=== PATIENT | male | born 1950 | race Two or more races ===

== ENCOUNTER 2023-08-13 15:34 | Inpatient (IN) | payer OTHER ==
[~2023-08-13] VITALS: Ht 188 cm; Wt 63.0 kg
--- NOTE | 2023-08-13 15:51 | NUR ---
PTE ALERTA Y ORIENTADO X3 REIFERE QUE EL ENERO LE REALIZARON COLONOSCOPIA EN CONSOLIDATED MALL EN CAGUAS. PTE REFIERE TENER DOLOR EN CUADRANTE INFERIOR DERECHO DESDE ENTONCES MISMO REFIERE TENER REFERIDO MEDICO POR MD MELINDA ALMENDAREZ.
[2023-08-13] MEDS ORDERED: XARELTO10 MG PO (15:55)
[2023-08-13] MEDS ORDERED: FAMOTIDINE/PF 20 MG in 0.9 % SODIUM CHLORIDE 8 ML IV PUSH STA (16:31)
[2023-08-13] MEDS ORDERED: ONDANSETRON HCL 2 MG/ML VIAL IV ONE (16:45)
[2023-08-13] MEDS ORDERED: 0.9 % SODIUM CHLORIDE 1,000 ML IV SCH ×2 (16:45→23:00)
[2023-08-13] MEDS ORDERED: MEPERIDINE HCL/PF 25 MG/ML VIAL IM ONE (16:45)
--- NOTE | 2023-08-13 17:49 | NUR ---
PTE EVALUADO POR DR LEON. SE EDUCA A PTE SOBRE [place] MEDICO Y REFIERE ENTENDER. SE COLECTAN MUESTRAS DE LABORATORIO BAJO MEDIDAS ASEPTICAS. SE ENTREGA ENVASE PARA U/A. SE CANALIZA A PTE Y SE ADMINISTRAN MEDICAMENTOS CLAY ORDEN MEDICA. SE NOTIFICA CT/PO. SE ENTREGA A PTE CONTRASTES Y SE EDUCA AL MISMO.
[2023-08-13 18:03] LABS: HEMATOCRIT 42.3 % (39.0-48.0); HEMOGLOBIN 14.1 g/dL (13-16.00); MEAN CELL VOLUME 98.2 fL (80.0-100.00); MEAN CORPUSCULAR HEMOGLOBIN 32.8 pg (27.00-32.0); MEAN CORPUSCULAR HGB CONC 33.4 g/dl (32.0-36.0); PLATELET COUNT 148 K/uL (150-450); RED BLOOD COUNT 4.31 M/uL (4.00-6.00); RED CELL DISTRIBUTION WIDTH 13.8 % (11.5-14.5)
[2023-08-13 18:21] LABS: ALBUMIN 3.3 gm/dL (3.4-5.0); BILIRUBIN TOTAL 1.75 mg/dL (0.3-1.2); CALCIUM 9.2 mg/dL (8.5-10.1); CREATININE SERUM 1.25 mg/dL (0.70-1.30); GFR 56.62; GLOBULINA 4.8 G/DL (2.4-3.5); POTASSIUM 4.34 mEq/L (3.5-5.1); TOTAL PROTEIN 8.1 gm/dL (6.4-8.2)
[2023-08-13 18:41] LABS: INR 1.47; PARTIAL THROMBOPLASTIN TIME 32.7 SECONDS (22.0-34.0)
[2023-08-13] MEDS ORDERED: PIPERACILLIN/TAZOBACTAM SODIUM 3.375 GM in 0.9 % SODIUM CHLORIDE 100 ML IV SCH (19:34)
[2023-08-13] MEDS ORDERED: ONDANSETRON HCL 4 MG in 0.9 % SODIUM CHLORIDE 50 ML IV PRN (23:15)
[2023-08-13] MEDS ORDERED: ENALAPRILAT DIHYDRATE 1.25 MG/ML VIAL IV PRN (23:15)
[2023-08-13] MEDS ORDERED: MEPERIDINE HCL/PF 25 MG/ML VIAL IM PRN (23:15)
[2023-08-14 00:29] LABS: PH,URINE 5.5 (5.0-8.0); URINE APPEARANCE Clear; URINE BILIRRUBIN Negative (NEGATIVE); URINE BLOOD Large; URINE COLOR Yellow; URINE GLUCOSE Negative (NEGATIVE); URINE LEUKOCYTE Negative; URINE NITRATE Negative; URINE PROTEIN 30 (NEGATIVE)
[2023-08-14 00:33] LABS: URINE BACTERIA 25.1 uL (0.0-1933); URINE EPITHELIAL CELLS 12.5 uL (0.0-38.8); URINE RBC 102.1 uL (0.0-20.8); URINE WBC 8.3 uL (0.0-23.2)
[2023-08-14] MEDS ORDERED: FAMOTIDINE/PF 20 MG in 0.9 % SODIUM CHLORIDE 8 ML IV PUSH SCH (09:00)
[2023-08-14] MEDS ORDERED: fentaNYL CITRATE 50 MCG/ML AMPUL IV ONE (12:45)
[2023-08-14] MEDS ORDERED: MIDAZOLAM HCL 2 MG/2 ML VIAL IV ONE (12:45)
[2023-08-14] MEDS ORDERED: DIPHENHYDRAMINE HCL 50 MG/ML VIAL 1ML IV ONE (12:45)
[2023-08-14] MEDS ORDERED: ENOXAPARIN SODIUM 40 MG/0.4 ML SYRINGE SUBCUTANEO SCH (17:40)
[2023-08-14] MEDS ORDERED: CANDESARTAN CILEXETIL 8 MG TAB PO SCH (17:40)
[2023-08-14] MEDS ORDERED: AA 4.25%/CAL/LYTES/DEXT 5% 1,000 ML PERIFERAL SCH (17:45)
[2023-08-14] MEDS ORDERED: CARVEDILOL 3.125 MG TABLET PO SCH (21:00)
[2023-08-15 07:01] LABS: HEMATOCRIT 37.2 % (39.0-48.0); HEMOGLOBIN 12.8 g/dL (13-16.00); MEAN CORPUSCULAR HGB CONC 34.4 g/dl (32.0-36.0); PLATELET COUNT 143 K/uL (150-450); RED BLOOD COUNT 3.87 M/uL (4.00-6.00); RED CELL DISTRIBUTION WIDTH 13.8 % (11.5-14.5)
[2023-08-15] MEDS ORDERED: FAMOTIDINE/PF 20 MG/2 ML VIAL ONE (07:07)
[2023-08-15 07:31] LABS: ALBUMIN 2.5 gm/dL (3.4-5.0); BILIRUBIN TOTAL 1.6 mg/dL (0.3-1.2); CALCIUM 8.7 mg/dL (8.5-10.1); CREATININE SERUM 1.06 mg/dL (0.70-1.30); GFR 68.48; GLOBULINA 3.7 G/DL (2.4-3.5); MAGNESIUM 2.3 mg/dL (1.8-2.4); PHOSPHOROUS 2.7 mg/dL (2.5-4.9); POTASSIUM 3.91 mEq/L (3.5-5.1); TOTAL PROTEIN 6.2 gm/dL (6.4-8.2)
[2023-08-15 07:44] LABS: C-REACTIVE PROTEIN 17.3 MG/DL (0.00-0.29)
[2023-08-15] MEDS ORDERED: ENOXAPARIN SODIUM 60 MG/0.6 ML SYRINGE SUBCUTANEO SCH (09:33)
[2023-08-15] MEDS ORDERED: ATORVASTATIN CALCIUM 40 MG TABLET PO SCH (17:00)
[2023-08-17 07:26] LABS: ALBUMIN 2.4 gm/dL (3.4-5.0); BILIRUBIN TOTAL 0.89 mg/dL (0.3-1.2); CALCIUM 8.2 mg/dL (8.5-10.1); CREATININE SERUM 0.96 mg/dL (0.70-1.30); GFR 76.78; GLOBULINA 3.7 G/DL (2.4-3.5); MAGNESIUM 2.1 mg/dL (1.8-2.4); PHOSPHOROUS 2.4 mg/dL (2.5-4.9); POTASSIUM 3.85 mEq/L (3.5-5.1); TOTAL PROTEIN 6.1 gm/dL (6.4-8.2)
[2023-08-17 07:35] LABS: HEMATOCRIT 34.2 % (39.0-48.0); HEMOGLOBIN 11.8 g/dL (13-16.00); MEAN CELL VOLUME 95.1 fL (80.0-100.00); MEAN CORPUSCULAR HEMOGLOBIN 32.8 pg (27.00-32.0); MEAN CORPUSCULAR HGB CONC 34.5 g/dl (32.0-36.0); PLATELET COUNT 165 K/uL (150-450); RED CELL DISTRIBUTION WIDTH 13.4 % (11.5-14.5)
[2023-08-17 07:40] LABS: C-REACTIVE PROTEIN 7.83 MG/DL (0.00-0.29)
[2023-08-17] MEDS ORDERED: FAMOTIDINE/PF 20 MG/2 ML VIAL ONE (07:48)
[2023-08-17] MEDS ORDERED: HYOSCYAMINE0.125 M1 SL (13:50)
[2023-08-17] MEDS ORDERED: RIVAROXABAN 20 MG TABLET PO SCH (17:00)
== END 2023-08-17 14:52 | disposition home or self-care (01) | DRG 389 ==
LOC: ER 15:34 → SURH 23:04
PROVIDERS: General Practice; Internal Medicine Infectious Disease; ADMIT Surgery; ATTEND Surgery
PROC: BW21ZZZ Computerized Tomography (CT Scan) of Abdomen and Pelvis (ICD-10-PCS; principal; 2023-08-13)
PROC: 02HV33Z Insertion of Infusion Device into Superior Vena Cava, Percutaneous Approach (ICD-10-PCS; 2023-08-14)
PROC: 4A12X4Z Monitoring of Cardiac Electrical Activity, External Approach (ICD-10-PCS; 2023-08-14)
PROC: 0D7N8DZ Dilation of Sigmoid Colon with Intraluminal Device, Via Natural or Artificial Opening Endoscopic (ICD-10-PCS; 2023-08-14)
DX: K56.699 Other intestinal obstruction unspecified as to partial versus complete obstruction (principal); N17.8 Other acute kidney failure; I10 Essential (primary) hypertension; E78.5 Hyperlipidemia, unspecified